=== PATIENT | female | born 1980 | race Caucasian/White ===

== ENCOUNTER 2023-11-15 09:26 | Observation (INO) | payer BC ==
[~2023-11-15] VITALS: Ht 180.3 cm; Wt 95.3 kg
[2023-11-15 10:11] LABS: BASOPHILS # (AUTO) 0.06 K/uL (0.00-0.20); BASOPHILS % (AUTO) 0.5 % (0.0-5.0); EOSINOPHILS # (AUTO) 0.24 K/uL (0.00-0.70); HEMATOCRIT 38.1 % (36-48); IMMATURE GRANULOCYTE ABSOLUTE 0.09 K/uL (0-1); LYMPHOCYTES # (AUTO) 2.6 K/uL (1.0-4.8); LYMPHOCYTES % (AUTO) 21.6 % (21.0-51.0); MEAN CORPUSCULAR HEMOGLOBIN 28.8 pg (27.0-33.0); MEAN CORPUSCULAR HGB CONC 32.8 g/dL (32.0-36.0); MEAN CORPUSCULAR VOLUME 87.8 fL (79-99); MONOCYTES # (AUTO) 1.1 K/uL (0.1-1.0); MONOCYTES % (AUTO) 8.8 % (3.0-13.0); NEUTROPHILS # (AUTO) 7.9 K/uL (1.8-7.7); NEUTROPHILS % (AUTO) 66.3 % (40.0-77.0); PLATELET COUNT (AUTO) 518 K/uL (130-400); RED BLOOD CELL COUNT(AUTO) 4.34 MIL/uL (4.00-5.50); RED CELL DISTRIBUTION WIDTH 12.6 % (11.0-15.5); WHITE BLOOD COUNT (AUTO) 11.9 K/uL (4.8-10.8)
[2023-11-15] MEDS: ondanSETRON 4MG INJ IVP ONE (10:11)
[2023-11-15] MEDS: ceFEPime HCL 1 GM VIAL IVPB SCH ×2 (10:11→21:12)
[2023-11-15] MEDS: morPHINE 2 MG SYG IVP ONE (10:11)
[2023-11-15] MEDS: 0.9%NACL 1000ML 1,000 ML IV ONE (10:11)
[2023-11-15 10:34] LABS: CREATININE 0.7 mg/dL (0.5-1.0); POTASSIUM 4.3 mmol/L (3.5-5.1)
[2023-11-15 10:59] LABS: APPEARANCE,URINE CLEAR (CLEAR); BILIRUBIN,URINE NEGATIVE (NEGATIVE); COLOR,URINE COLORLESS (YELLOW); GLUCOSE, URINE (UA) NEGATIVE (NEGATIVE); KETONES,URINE NEGATIVE (NEGATIVE); LEUKOCYTE ESTERASE ,URINE NEGATIVE Leu/uL (NEGATIVE); NITRATE,URINE NEGATIVE (NEGATIVE); OCCULT BLOOD,URINE NEGATIVE (NEGATIVE); PROTEIN,URINE NEGATIVE (NEGATIVE); UROBILINOGEN,URINE 0.2 mg/dL (0.2-1.0)
[2023-11-15 11:00] LABS: ADD UA MICROSCOPIC NO
[2023-11-15] MEDS: 0.9%NACL 1000ML 1,000 ML IV SCH (11:52)
[2023-11-15] MEDS: VANCOMYCIN KIT 1 GM/250 ML IV.KIT IV ONE (11:52)
[2023-11-15] MEDS ORDERED: acetaMINOPHEN 325 MG TAB PO PRN (12:00)
[2023-11-15] MEDS ORDERED: hydrALAZine 20MG/ML VIAL IV PRN (12:00)
[2023-11-15] MEDS ORDERED: NITROGLYCERIN 0.4 MG SL TAB SL PRN (12:00)
[2023-11-15] MEDS ORDERED: DiphenhydrAMINE HCL 25 MG CAPSULE PO PRN (12:00)
[2023-11-15] MEDS ORDERED: LACTULOSE 20 GM/30 ML UDCUP PO PRN (12:00)
[2023-11-15] MEDS ORDERED: VANCOMYCIN KIT 1 GM/250 ML IV.KIT IV SCH (13:30)
[2023-11-15 20:00] VITALS: BP 125/61; PULSE 87; RESP 18; TEMP 97.4
[2023-11-15] MEDS: FAMOTIDINE 20MG TAB PO SCH (21:13)
[2023-11-15] MEDS: morPHINE 2 MG SYG IV PRN (21:15)
[2023-11-16] VITALS: BP 117/67; PULSE 80; RESP 18; TEMP 98.8
[2023-11-16 04:00] VITALS: BP 104/63; PULSE 53; RESP 18; TEMP 97.9
[2023-11-16 05:56] LABS: BASOPHILS # (AUTO) 0.05 K/uL (0.00-0.20); BASOPHILS % (AUTO) 0.5 % (0.0-5.0); EOSINOPHILS # (AUTO) 0.28 K/uL (0.00-0.70); EOSINOPHILS % (AUTO) 2.6 % (0.0-8.0); HEMATOCRIT 36.5 % (36-48); IMMATURE GRANULOCYTE ABSOLUTE 0.11 K/uL (0-1); LYMPHOCYTES # (AUTO) 2.8 K/uL (1.0-4.8); LYMPHOCYTES % (AUTO) 26.2 % (21.0-51.0); MEAN CORPUSCULAR HEMOGLOBIN 28.7 pg (27.0-33.0); MEAN CORPUSCULAR HGB CONC 32.1 g/dL (32.0-36.0); MEAN CORPUSCULAR VOLUME 89.5 fL (79-99); MONOCYTES # (AUTO) 1.1 K/uL (0.1-1.0); MONOCYTES % (AUTO) 10.2 % (3.0-13.0); NEUTROPHILS # (AUTO) 6.3 K/uL (1.8-7.7); NEUTROPHILS % (AUTO) 59.5 % (40.0-77.0); PLATELET COUNT (AUTO) 409 K/uL (130-400); RED BLOOD CELL COUNT(AUTO) 4.08 MIL/uL (4.00-5.50); RED CELL DISTRIBUTION WIDTH 12.6 % (11.0-15.5); WHITE BLOOD COUNT (AUTO) 10.6 K/uL (4.8-10.8)
[2023-11-16 06:10] LABS: ALBUMIN 2.8 g/dL (3.5-5.0); BILIRUBIN,TOTAL 0.4 mg/dL (0.2-1.0); CREATININE 0.7 mg/dL (0.5-1.0); POTASSIUM 4.4 mmol/L (3.5-5.1); TOTAL PROTEIN, SERUM 6.8 g/dL (6.0-8.3)
[2023-11-16 08:54] LABS: INR <= 0.93 (0.85-1.15); PROTHROMBIN TIME 10.1 SEC (9.6-11.6)
[2023-11-16 08:55] LABS: PARTIAL THROMBOPLASTIN TIME 29.3 SEC (26.3-35.5)
[2023-11-16] MEDS ORDERED: VANCOMYCIN 1G/250ML KIT 250 ML IV SCH (09:30)
[2023-11-16] MEDS ORDERED: VANCOMYCIN PROTOCOL PER PHARMACY IV SCH (09:30)
[2023-11-16 10:38] VITALS: O2SAT 97
[2023-11-16 11:49] VITALS: BP 120/78; PULSE 85; RESP 20; TEMP 97.8
[2023-11-16] MEDS: acetaMINOPHEN 325 MG TAB PO PRN (13:54)
[2023-11-16] MEDS: VANCOMYCIN 1G/250ML KIT 250 ML IV SCH (13:56)
[2023-11-16] MEDS ORDERED: LEVO-70 PO (16:49)
[2023-11-16 17:31] VITALS: BP 118/72; PULSE 80; RESP 18; TEMP 97.9
== END 2023-11-16 18:00 | disposition home or self-care (01) ==
LOC: EDH 09:26 → EDHIP 11:35 → INTOOBSV 11:35 → 4CH 15:45
PROVIDERS: ADMIT Hospitalist; ATTEND Hospitalist
DX: T81.30XA Disruption of wound, unspecified, initial encounter (principal); L03.116 Cellulitis of left lower limb; D75.839 Thrombocytosis, unspecified; E87.1 Hypo-osmolality and hyponatremia; D72.829 Elevated white blood cell count, unspecified; R22.42 Localized swelling, mass and lump, left lower limb; X58.XXXA Exposure to other specified factors, initial encounter; Y93.89 Activity, other specified; Y92.89 Other specified places as the place of occurrence of the external cause; Y99.8 Other external cause status; Z79.899 Other long term (current) drug therapy; Z98.890 Other specified postprocedural states
CPT/HCPCS: 99285; 96365; 93971; 96366 ×2; 96375; 96367; 96376; 80048; 85025 ×2; 87040 ×2; 87076; 87086; 87186; 83605; 81003; 36415 ×2; 84145; 87070; 10005; 80053; 85610; 85730; 87071; 87205; 76942; J2270 ×2; J7030; J2405; J3370; J0692 ×3; A6248; G0378; C1729; A4600